=== PATIENT | female | born 1960 | race Caucasian/White ===

== ENCOUNTER 2020-02-19 08:32 | Day surgery (SDC) | payer MEDICAID ==
[~2020-02-19] VITALS: Ht 180.3 cm; Wt 67.6 kg
[2020-02-19 09:01] VITALS: BP 149/100
[2020-02-19] MEDS ORDERED: SIME125C43 PO (09:10)
[2020-02-19] MEDS ORDERED: ONDA8TAB65 PO (09:10)
[2020-02-19] MEDS ORDERED: LIPA1CAP18 PO (09:10)
[2020-02-19] MEDS ORDERED: DOCU-21 PO (09:10)
[2020-02-19] MEDS ORDERED: MULT-1085 PO (09:10)
[2020-02-19] MEDS ORDERED: HYDR2TAB7 PO (09:10)
[2020-02-19] MEDS ORDERED: normal saline 1000ml 1,000 ML IV SCH ×2 (09:10→10:10)
[2020-02-19] MEDS ORDERED: AMLO5TAB16 PO (09:10)
[2020-02-19] MEDS ORDERED: ACET-814 (09:11)
[2020-02-19] MEDS ORDERED: heparin sodium, porcine/PF 100unit/ml 5ML syringe ONE (10:00)
[2020-02-19] MEDS ORDERED: midazolam 2 mg/2 ml injection ONE ×2 (10:00→10:54)
[2020-02-19] MEDS ORDERED: LIDOcaine 1%/PF 5ML 10 MG/ML VIAL ONE (10:00)
[2020-02-19] MEDS ORDERED: fentaNYL/PF 50MCG/1 ML 2ML syringe ONE ×3 (10:00→11:34)
[2020-02-19] MEDS ORDERED: FLU VACC QS2020-21(6MOS UP)/PF 60 MCG/0.5 ML SYRINGE IMVAC ONE (10:15)
[2020-02-19 12:00] VITALS: BP 137/90
--- NOTE | 2020-02-19 12:13 | NUR ---
Pt complaining of increasing pain in abdomen. Dr. Moy phoned, order received for one time Tylenol dose 650mg.
[2020-02-19 12:15] VITALS: BP 148/87
[2020-02-19] MEDS ORDERED: acetaminophen 325mg tablet PO PRN (12:15)
[2020-02-19 12:30] VITALS: BP 155/85
[2020-02-19 12:45] VITALS: BP 149/82
== END 2020-02-19 13:00 | disposition home or self-care (01) ==
LOC: SSTAY O 08:32
PROVIDERS: ATTEND Radiology Diagnostic Radiology
DX: T82.598A Other mechanical complication of other cardiac and vascular devices and implants, initial encounter (principal); C25.0 Malignant neoplasm of head of pancreas; Z23 Encounter for immunization; I10 Essential (primary) hypertension; F17.210 Nicotine dependence, cigarettes, uncomplicated; N28.9 Disorder of kidney and ureter, unspecified; Z88.5 Allergy status to narcotic agent; Z79.899 Other long term (current) drug therapy; Y83.8 Other surgical procedures as the cause of abnormal reaction of the patient, or of later complication, without mention of misadventure at the time of the procedure; Y92.89 Other specified places as the place of occurrence of the external cause
CPT/HCPCS: 36561; 36590; 76937; 77001; 90471; 99152; 99153; C1769; C1788; C1894; J1642; J2250; J3010; J7030; Q2039